=== PATIENT | male | born 1965 | race Caucasian/White ===

== ENCOUNTER 2023-09-20 16:35 | Outpatient (CLI) | payer BC, SELFPAY ==
[2023-09-21 15:51] LABS: C.Difficile Negative (Negative); CDIFFEPI 027 PRESUMPTIVE NEGATIVE (Negative)
== END 2023-09-20 16:36 | disposition home or self-care (01) ==
PROVIDERS: Visit Provider Radiology Radiation Oncology
DX: C61 Malignant neoplasm of prostate (principal)
CPT/HCPCS: 87493